=== PATIENT | female | born 1990 | race Hispanic/Latino ===

== ENCOUNTER → 2017-12-21 13:44 | Outpatient (CLI) | payer SELFPAY ==
--- NOTE | 2017-12-21 | DI.US.S_ITS ---
ULTRASOUND OF LEFT BREAST: 12/21/2017 CLINICAL: Palpable left breast lump and focal pain. IN UPPER OUTER QUADRANT, RESOLVED PER PATIENT. No prior exams were available for comparison. Color flow ultrasound of the left breast was performed on the areas of interest. Guerra scale images of the real-time examination were reviewed. IMPRESSION: NEGATIVE There is no sonographic evidence of malignancy. There is no sonographic abnormality seen in the left breast to correspond with the area of clinical concern in the upper outer quadrant, however, clinical followup is recommended. Of note, the patient states the prior palpable lump and area of pain have resolved. Return to annual mammogram screening schedule is recommended.(12/22/2018) This exam was interpreted at Station ID: [id number]. Electronically Signed By: Sera Curtis M.D. lk/:12/21/2017 16:21:15 letter sent: Clinical Evaluation Ultrasound BI-RADS: 1 Negative
== END ==
PROVIDERS: Family Provider Family Medicine; PCP Family Medicine; Visit Provider Nurse Practitioner Family
DX: N63.21 Unspecified lump in the left breast, upper outer quadrant (principal); N64.4 Mastodynia
CPT/HCPCS: 76642

== ENCOUNTER → 2018-04-26 09:22 | Outpatient (CLI) | payer OTHER, MEDICAID, SELFPAY ==
--- NOTE | 2018-04-26 | DI.US.S_ITS ---
PROCEDURE: US OB <= 14 WEEKS FETUS INDICATIONS: SIZE AND DATES OUTSIDE/PRIOR DATING DATA: Last menstrual period (LMP): 02/10/18. LMP-based estimated date of delivery (JUNI): 11/17/18. First dating scan (date and location): 04/26/18. Estimated date of delivery (JUNI) from first dating scan: . TECHNIQUE: Real-time scanning was performed of the fetus and maternal pelvic organs, with image documentation. COMPARISON: None. FINDINGS: Embryo: A single live intrauterine is seen. The measured heart rate is 106 beats per minute. The crown-rump length measures 0.3 cm, corresponding to an estimated gestational age of 6 weeks 0 days. It is too early for detailed anatomic assessment. By visual inspection, the amount of amniotic fluid is within normal limits. No significant findings of subchorionic/perigestational hemorrhage are seen. Measurement variability in dating: +/- 4 weeks by LMP, +/- 7 days by mean sac diameter (use before 6 weeks gestation if crown-rump length not able to be measured), +/- 5 days by crown-rump length (up to 8 weeks 6 days gestation), +/- 7 days by crown-rump length (up to 13 weeks 6 days gestation). Maternal organs: Ovaries are unremarkable. Limited images through the kidneys demonstrate no hydronephrosis. IMPRESSION: A single live intrauterine is seen. There is an approximately one month discrepancy between the estimated gestational age based upon these images and the estimated gestational age based upon the given date of the last menstrual period. Please correlate with precise clinical data. Dictated by: Natalio Amezcua M.D. on 04/26/2018 at 10:30 Approved by: Natalio Amezcua M.D. on 04/26/2018 at 10:33
== END ==
PROVIDERS: Family Provider Family Medicine; PCP Family Medicine; Visit Provider Family Medicine
DX: Z34.91 Encounter for supervision of normal pregnancy, unspecified, first trimester (principal); Z3A.01 Less than 8 weeks gestation of pregnancy
CPT/HCPCS: 76801; 76817

== ENCOUNTER → 2018-06-04 14:35 | Outpatient (REF) | payer OTHER, MEDICAID, SELFPAY ==
[2018-06-04 14:57] LABS: Influenza A and B by PCR Rapid Negative (Negative)
== END ==
LOC: LAB 14:35
PROVIDERS: Family Provider Family Medicine; PCP Family Medicine; Visit Provider Nurse Practitioner Family
DX: R05 Cough (principal); R52 Pain, unspecified
CPT/HCPCS: 87400

== ENCOUNTER → 2018-06-24 12:16 | Outpatient (CLI) | payer OTHER, MEDICAID, SELFPAY ==
--- NOTE | 2018-06-24 | DI.US.S_ITS ---
PROCEDURE: US PELVIC COMPLETE INDICATIONS: Pelvic pain, bleeding, uncertain IUD positioning, recent elective . TECHNIQUE: Real-time scanning was performed of the pelvic organs, with image documentation. Additional endovaginal scanning was necessary due to incomplete visualization of the adnexal and endometrial structures by transabdominal scanning. COMPARISON: [facility], US, PELVIC COMPLETE, 07/13/2017, 14:25. FINDINGS: Transabdominal scanning: Limited scanning through the kidneys shows no hydronephrosis. No pathologic free abdominal or pelvic fluid. Endovaginal scanning: Uterus: Uterus is normal in size at 4.0 x 5.3 x 8.6 cm, anteverted. The endometrium measures up to 23 mm mm in combined thickness and appears hypervascular with large vessels and indistinct margination of the endometrial borders with suspected clot and possible retained products of conception intermixed in the fundal portion of the endometrial canal. Active vaginal bleeding during the examination was present. A normally positioned IUD was not seen. A hyperechoic focus with shadowing was noted at the junction of the low uterine segment and upper cervical canal. Ovaries: Normal bilaterally, without evidence of adjacent free fluid or hemorrhagic fluid within the peritoneal space. IMPRESSION: Abnormal endometrial lining thickness in this patient who reportedly has undergone recent elective . A combination of endometrial hyperemia and enlarged blood vessels are present with intermixed clot and possible retained products of conception with the endometrial thickness up to 23 mm. Reportedly an IUD is in place but it is not positioned within the endometrial canal normally. Rather, there is an echogenic focus with shadowing at the junction of the low uterine segment and upper cervical canal. Ectopic IUD positioning appears present. Given the vaginal bleeding ongoing and abnormal appearance of the endometrial canal with suspected retained products of conception the ordering health care provider Dr. Schreiber was contacted to assess the patient and it is anticipated that the patient will be transferred to the emergency room for further evaluation and gynecological consultation. Dictated by: Sourav Marmolejo M.D. on 06/24/2018 at 13:51 Approved by: Sourav Marmolejo M.D. on 06/24/2018 at 13:56
== END ==
PROVIDERS: Family Provider Family Medicine; PCP Family Medicine; Visit Provider Family Medicine
DX: N93.9 Abnormal uterine and vaginal bleeding, unspecified (principal); R10.2 Pelvic and perineal pain; T83.32XA Displacement of intrauterine contraceptive device, initial encounter
CPT/HCPCS: 76856

== ENCOUNTER 2018-06-24 13:39 | Observation (INO) | payer OTHER, MEDICAID, SELFPAY ==
[2018-06-24] VITALS (14 sets, daily range): BP systolic 90–137; BP diastolic 60–85; PULSE 65–88; RESP 11–20; TEMP 36–36.7; O2SAT 97–100; BMI 23.6
--- NOTE | 2018-06-24 | PATH_ITS ---
[facility] Accession Number: [id number] . 01 Material submitted: . product of conception - POC . 02 Diagnosis: Products of Conception: Products of conception identified. MRV/06/27/2018 . 02 Electronically signed: . Carolina Trtoter MD, Pathologist NPI- [id number] . 01 Gross description: . Received in formalin, labeled with the patient's name and products of conception, is a suction bag containing multiple euceda-brown soft tissue fragments admixed with mucus measuring 2.1 x 2.0 x 0.6 cm in aggregate. No parts are identified. The specimen is entirely submitted in cassettes A1 and A2. (HOLLY:[id number]) /MRV . 02 Pathologist provided ICD-10: O02.1 . 02 CPT . 395089 Performed at: 01 [facility] [address] [id number] MD Josue Garcia MD Phone: [phone] Performed at: [address] [facility] [address] [place], [place] [id number] MD Zoila Giron MD Phone: [phone]
--- NOTE | 2018-06-24 13:54 | ED_ITS ---
HPI - General Adult General Chief complaint: Vaginal Bleeding Stated complaint: US. IUD issues/[facility] issues Time Seen by Provider: 06/24/18 13:40 Source: patient Mode of arrival: ambulatory Limitations: no limitations History of Present Illness HPI narrative: Patient is a not currently with the last 2 pr egnancies ending and elective . The last elective done in the middle of April of this year. She states that it was a medical . No instrumentation. States that [facility] States she had ultrasound done at that time. Does not know the results of that ultrasound. Had an IUD placed. She states that since the elective she has been bleeding every single day. She states that it varies from a very light bleeding to a heavy menstrual cycle. Even the very light bleeding does require her to wear a pad or a panty liner. She did pass out 1 time last week due to suspected blood loss. She was in [place] at the time. She did not receive any blood transfusions. When she returned home she had a follow-up visit this morning with her primary doctor who ordered a ultrasound. The preliminary report of the ultrasound showed an ectopic IUD placement and concerns for retained products of conception. She was sent to the emergency department. She states she was not bleeding very much this morning but it has increased to a light. currently. No abdominal pain. Related Data Home Medications Medication Instructions Recorded Confirmed ergocalciferol (vitamin D2) 50,000 unit PO QWEEK 06/24/18 06/24/18 [Vitamin D2] Allergies Allergy/AdvReac Type Severity Reaction Status Date / Time No Known Drug Allergies Allergy Unknown Unverified 06/27/17 12:35 Review of Systems Constitutional Denies fever(s) Cardiovascular Denies chest pain and Denies dyspnea Respiratory Denies dyspnea Gastrointestinal Gastrointestinal: Denies abdominal pain, Denies change in stool character, Denies diarrhea, Denies nausea and Denies vomiting Genitourinary Denies pelvic pain and Reports vaginal discharge Integumentary/Breasts Denies rash Hematologic/Lymphatic Denies easy bleeding and Denies easy bruising [facility] Medical History Healthy adult (Acute) Social History Smoking Status: Never smoker Social History Smoking Status: Never smoker Exam Initial Vital Signs Initial Vital Signs: Vital Signs Temperature 98.1 F 06/24/18 13:49 Pulse Rate 88 06/24/18 13:49 Respiratory Rate 20 06/24/18 13:49 Blood Pressure 137/75 06/24/18 13:49 Pulse Oximetry 100 06/24/18 13:49 Const General: cooperative, healthy appearing, comfortable, well developed, well groomed and No acute distress Orientation: alert, awake and oriented x3 HENMT Head: normal to inspection and normocephalic Resp Effort & Inspection: normal respiratory effort Auscultation: clear to auscultation bilaterally Cardio Rate: regular rate Rhythm: regular rhythm GI Inspection: non-distended Palpation: soft, No firm and No tender Skin Lesions: no lesions Rashes: no rashes Neuro General: alert and awake Cognition: normal cognition Speech: speech normal Extrem General: normal to inspection and capillary refill normal Psych Appearance: grossly normal and well kempt Course Orders Ordered: ED Orders 06/24/18 13:55 Basic Metabolic Panel Stat Complete Blood Count AUTO DIFF Stat Test Serum,Qual Stat Type and Screen Stat Sodium Chloride (Normal Saline 0.9%) 1,000 mls @ 125 mls/hr IV CONT MAYKEL Last Admin: 06/24/18 15:09 Dose: 125 mls/hr Discontinued Medications Famotidine (Pepcid) 20 mg in 50 mls @ 200 mls/hr IV NOW ONE Stop: 06/24/18 15:10 Last Admin: 06/24/18 15:11 Dose: 200 mls/hr Metoclopramide HCl (Reglan) 10 mg IV NOW ONE Stop: 06/24/18 14:57 Last Admin: 06/24/18 15:11 Dose: 10 mg Vital Signs - 8 hr 06/24/18 13:49 06/24/18 14:02 Temperature 98.1 F Pulse Rate 88 80 Respiratory Rate 20 Blood Pressure 137/75 Blood Pressure [Left Arm] 117/85 Pulse Oximetry 100 97 Medical Decision Making Lab Data Lab results reviewed: Yes I reviewed the patient's lab results. Result diagrams: 06/24/18 13:55 06/24/18 13:55 Lab Results 04/08/19 04/08/19 04/08/19 Range/Units 13:55 13:55 13:55 WBC 5.7 (4.5-11.0) X10^3/uL RBC 4.01 (4.0-5.2) X10^6/uL Hgb 12.0 (12.0-16.0) g/dL Hct 35.8 L (36-46) % MCV 89.4 (80-100) fL MCH 30.0 (26-34) PG MCHC 33.6 (30-36) % RDW 12.9 (11.6-14.8) % Plt Count 338 (150-400) X10^3/uL Neut % (Auto) 52.4 (50-75) % Lymph % (Auto) 38.4 (25-40) % [place] % (Auto) 6.6 (3-14) % Eos % (Auto) 2.0 (2-4) % Baso % (Auto) 0.6 (0-2) % Neut # (Auto) 3000 (8411-6069) /uL Lymph # (Auto) 2200 (8227-7277) /uL [place] # (Auto) 400 (0-900) /uL Eos # (Auto) 100 (0-450) /uL Baso # (Auto) 0 (0-100) /uL Sodium 139 (137-145) mmol/L Potassium 4.1 (3.4-5.1) mmol/L Chloride 102 (98-107) mmol/L Carbon Dioxide 25 (22-32) mmol/L BUN 13 (7-17) mg/dL Creatinine 0.50 L (0.52-1.04) mg/dL Estimated GFR > 60.0 (>60) mL/min BUN/Creatinine Ratio 26.0 H (6-22) Glucose 98 (70-100) mg/dL Calcium 9.0 (8.4-10.2) mg/dL Serum , Qual Negative (Negative) Imaging Data Ultrasound pelvis: Radiologist's impression: PROCEDURE: US PELVIC COMPLETE INDICATIONS: Pelvic pain, bleeding, uncertain IUD positioning, recent elective . TECHNIQUE: Real-time scanning was performed of the pelvic organs, with image documentation. Additional endovaginal scanning was necessary due to incomplete visualization of the adnexal and endometrial structures by transabdominal scanning. COMPARISON: [facility], US, PELVIC COMPLETE, 07/13/2017, 14:25. FINDINGS: Transabdominal scanning: Limited scanning through the kidneys shows no hydronephrosis. No pathologic free abdominal or pelvic fluid. Endovaginal scanning: Uterus: Uterus is normal in size at 4.0 x 5.3 x 8.6 cm, anteverted. The endom etrium measures up to 23 mm mm in combined thickness and appears hypervascular with large vessels and indistinct margination of the endometrial borders with suspected clot and possible retained products of conception intermixed in the fundal portion of the endometrial canal. Active vaginal bleeding during the examination was present. A normally positioned IUD was not seen. A hyperechoic focus with shadowing was noted at the junction of the low uterine segment and upper cervical canal. Ovaries: Normal bilaterally, without evidence of adjacent free fluid or hemorrhagic fluid within the peritoneal space. IMPRESSION: Abnormal endometrial lining thickness in this patient who reportedly has undergone recent elective . A combination of endometrial hyperemia and enlarged blood vessels are present with intermixed clot and possible retained products of conception with the endometrial thickness up to 23 mm. Reportedly an IUD is in place but it is not positioned within the endometrial canal normally. Rather, there is an echogenic focus with shadowing at the junction of the low uterine segment and upper cervical canal. Ectopic IUD positioning appears present. Given the vaginal bleeding ongoing and abnormal appearance of the endometrial canal with suspected retained products of conception the ordering health care provider Dr. Schreiber was contacted to assess the patient and it is anticipated that the patient will be transferred to the emergency room for further evaluation and gynecological consultation. Dictated by: Sourav Marmolejo M.D. on 06/24/2018 at 13:51 MDM Narrative Medical decision making narrative: Patient is nontoxic appearing. Her H&H is unremarkable. She is not . The ultrasound report placed in this note for reference. It was not ordered out of the emergency department. It does show what looks like retained products of conception and a displaced IUD. I discussed the case with Dr. Grace who will admit the patient to take the operating room for D and C. The patient's last meal was at 1100 hours this morning. Medications were given per manager spanish recommendation. Patient was informed of the findings and of the need for surgery. She expressed understanding and agreement with plan. Discharge Plan Departure Patient Disposition: Admitted As Inpatient Clinical Impression: Retained products of conception IUD migration Qualifiers: Encounter type: initial encounter Qualified Code(s): T83.89XA - Other specified complication of genitourinary prosthetic devices, implants and grafts, initial encounter Admit Date/Time: 06/24/18 14:59 Admit Provider: Viktoriya Grace
[2018-06-24 14:10] LABS: Add Manual Diff / Slide Review NO; Basophils Absolute Auto 0 /uL (0-100); Basophils Percent Auto 0.6 % (0-2); Eosinophils Absolute Auto 100 /uL (0-450); Hematocrit 35.8 % (36-46); Lymphocytes Absolute Auto 2200 /uL (1100-4500); Lymphocytes Percent Auto 38.4 % (25-40); Mean Corpuscular HGB Conc 33.6 % (30-36); Mean Corpuscular Volume 89.4 fL (80-100); Monocytes Absolute Auto 400 /uL (0-900); Monocytes Percent Auto 6.6 % (3-14); Neutrophils Absolute Auto 3000 /uL (1500-7000); Neutrophils Percent Auto 52.4 % (50-75); Platelet Count 338 X10^3/uL (150-400); Red Blood Cell Count 4.01 X10^6/uL (4.0-5.2); Red Cell Distribution Width 12.9 % (11.6-14.8); White Blood Cell Count 5.7 X10^3/uL (4.5-11.0)
--- NOTE | 2018-06-24 14:15 | PC.NURSE ---
Patient had a procedure for a medical in April 2018 and was continuously bleeding afterward. In April,patient had an US and had an IUD [facility] [place]. Since then has continued with bleeiding off and on heavy and spotting. While she wa sin [place] last week she bled very heavily for several days, a super tampon every hour. She also reports having a syncopal episode while the heavy bleeding was happening. Today bleeding is more spotting like at the beginning of a period. She saw Dr. Schreiber due to continued bleeding and had bloodwork and US done. Preliminary results of US showed migrated IUD with large amount of blood in uterus. Sent here.
[2018-06-24 14:25] LABS: Blood Urea Nitrogen 13 mg/dL (7-17); Carbon Dioxide 25 mmol/L (22-32); Chloride 102 mmol/L (98-107); Estimated Glomerular Filt Rate > 60.0 mL/min (>60); Glucose 98 mg/dL (70-100); HEMOLYSIS < 15 (0-50); Potassium 4.1 mmol/L (3.4-5.1); Sodium 139 mmol/L (137-145)
[2018-06-24 14:27] LABS: Pregnancy Test Serum,Qual Negative (Negative)
[2018-06-24] MEDS: SODIUM CHLORIDE 0.9% 1,000 ML 125 ML IV (15:09)
[2018-06-24] MEDS: FAMOTIDINE 20 MG/50 ML PIGGYBACK 200 MG IV (15:11)
[2018-06-24] MEDS: METOCLOPRAMIDE 10 MG/2 ML INJ IV (15:11)
[2018-06-24] MEDS: LACTATED RINGERS 1,000 ML 100 ML IV (15:53)
[2018-06-24] MEDS: LACTATED RINGERS 1,000 ML 42 ML IV (19:30)
--- NOTE | 2018-06-24 19:51 | PM.PREOP ---
Pre-operative Note Interval Note History & Physical reviewed/Exam performed by Physician: Yes Changes to H&P: No
--- NOTE | 2018-06-24 19:51 | PM.HP.1 ---
History of Present Illness Date Patient Seen: 06/24/18 Time Patient Seen: 17:30 Chief complaint: US. IUD issues/Nonprofit Director issues Narrative: Patient is a 28-year-old 4 para 2 who presented to the emergency department with brisk vaginal bleeding. She was sent from her primary care doctor's office 2 ultrasound due to the bleeding. The IUD was found to be in the lower uterine segment and there appeared to be retained products of conception and clot in the uterus. Patient underwent a medical termination in April of 2018. At the post procedure visit and ultrasound was performed but the patient does not know the results of that ultrasound. An IUD was placed at that visit. She has been bleeding ever since. Patient History Medical History Healthy adult (Acute) Social History household members: significant other and children Smoking Status: Never smoker Family & Social History Social History: household members significant other,children Prior Living Arrangements House Tobacco & Substance use: Smoking Status Never smoker Meds Home Medications Medication Instructions Recorded Confirmed Type ergocalciferol (vitamin D2) 50,000 unit PO QWEEK 06/24/18 06/24/18 History [Vitamin D2] Allergies Allergy/AdvReac Type Severity Reaction Status Date / Time No Known Drug Allergies Allergy Unknown Verified 06/24/18 19:22 Exam Vital Signs (past 8 hours): - 06/24/18 13:49 06/24/18 14:02 06/24/18 14:30 Temperature 98.1 F Pulse Rate 88 80 88 Respiratory Rate 20 16 Blood Pressure 137/75 Blood Pressure [Left Arm] 117/85 105/67 Pulse Oximetry 100 97 97 06/24/18 15:31 06/24/18 16:30 06/24/18 17:00 Temperature Pulse Rate 66 76 69 Respiratory Rate 16 16 16 Blood Pressure Blood Pressure [Left Arm] 90/60 107/76 99/61 Pulse Oximetry 99 100 100 06/24/18 18:00 06/24/18 18:57 06/24/18 19:07 Temperature 97.0 F L Pulse Rate 77 77 68 Respiratory Rate 15 16 15 Blood Pressure 100/67 110/71 Blood Pressure [Left Arm] 104/69 Pulse Oximetry 100 99 100 Oxygen Delivery Method Room Air Narrative Exam Narrative: HEENT: No thyromegaly, no anterior cervical or supraclavicular lymphadenopathy. Lungs:Clear to auscultation bilaterally, no wheezes. Cardiovascular: Regular rate and rhythm, no murmurs, rubs, or gallops. Abdomen: No scars. No hepatosplenomegaly. No masses palpable. External genitalia: Normal Vagina: Normal Cervix: Normal Bimanual exam: 8 Week size uterus. Mobile. Rectal: No masses. Objective Labs Result Diagrams: 06/24/18 13:55 06/24/18 13:55 Labs: Laboratory Results - last 24 hr 06/24/18 06/24/18 06/24/18 13:55 13:55 13:55 WBC 5.7 RBC 4.01 Hgb 12.0 Hct 35.8 L MCV 89.4 MCH 30.0 MCHC 33.6 RDW 12.9 Plt Count 338 Neut % (Auto) 52.4 Lymph % (Auto) 38.4 [place] % (Auto) 6.6 Eos % (Auto) 2.0 Baso % (Auto) 0.6 Neut # (Auto) 3000 Lymph # (Auto) 2200 [place] # (Auto) 400 Eos # (Auto) 100 Baso # (Auto) 0 Sodium 139 Potassium 4.1 Chloride 102 Carbon Dioxide 25 BUN 13 Creatinine 0.50 L Estimated GFR > 60.0 BUN/Creatinine Ratio 26.0 H Glucose 98 Calcium 9.0 Serum , Qual Negative Blood Type Antibody Screen 06/24/18 13:55 WBC RBC Hgb Hct MCV MCH MCHC RDW Plt Count Neut % (Auto) Lymph % (Auto) [place] % (Auto) Eos % (Auto) Baso % (Auto) Neut # (Auto) Lymph # (Auto) [place] # (Auto) Eos # (Auto) Baso # (Auto) Sodium Potassium Chloride Carbon Dioxide BUN Creatinine Estimated GFR BUN/Creatinine Ratio Glucose Calcium Serum , Qual Blood Type O Positive Antibody Screen Negative Assessment & Plan Assessment & Plan narrative: Assessment: 28-year-old 4 para 2 with retained products of conception and malposition IUD Plan: Removal of IUD and suction D&C The risks, benefits, and alternatives to the procedure were explained to the patient. The risks including bleeding, infection, and uterine perforation. She understands these risks and agrees to proceed. Time Spent With Patient Time with patient: 15-24 minutes
--- NOTE | 2018-06-24 23:42 | SUR.OPER ---
Lithotomy on padded OR bed, head on pillow, arms secured on padded arm boards at <90 degrees abduction. Legs secured in padded yellow fins stirrups.
[2018-06-25] MEDS: OXYCODONE/ACETAMINOPHEN 5/325 TABLET 1 TAB PO
[2018-06-25 00:01] VITALS: BP 107/74; PULSE 83; RESP 13; TEMP 37; O2SAT 100
[2018-06-25 00:25] VITALS: BP 100/64; PULSE 76; RESP 16; TEMP 37.2; O2SAT 100
--- NOTE | 2018-07-03 06:44 | PM.GYNOP.1 ---
Operative Date/Time/Diagnoses Date of procedure: 06/24/18 Time of procedure: 23:30 Pre-op diagnosis: Retained products of conception Malpositioned IUD Post-op diagnosis: same Procedure: Procedures Operation Date: 06/24/18 19:00 Actual Procedures Side Surgeon p Dilation and Curettage-Suction Viktoriya Grace MD Indications: Retained products of conception Malpositioned IUD Surgeon: Viktoriya Grace Anesthesia Type: General (LMA) Operative Notes Findings: 8 week size anteverted uterus Large amount of products of conception Mirena IUD sitting in the lower uterine segment Closure Type: not applicable Specimen(s): other (Products of conception to pathology, IUD) Estimated blood loss (mL): 100 Blood products transfused: none Procedure in detail: After informed consent was obtained, the patient was taken to the operating room where she was placed in the dorsal supine position. After adequate LMA general anesthesia was achieved, she was placed in the dorsal lithotomy position, and prepped and draped in the usual sterile fashion. a time-out was performed. A bivalve speculum was placed into the vagina and the anterior lip of the cervix grasped with a single-tooth tenaculum. The Mirena IUD strings were grasped and the IUD was removed without difficulty. The cervical os was sequentially dilated until the # 8 curved plastic curette could pass easily into the endometrial cavity. Several passes with suction revealed a large amount of tissue. The polyp forceps were used to remove clot and tissue. Several passes with gentle sharp curettage revealed some tissue. Several more passes with suction revealed blood only. The instruments were removed from the uterus. The single-tooth tenaculum was removed from the anterior lip of the cervix. The bivalve speculum was removed from the vagina. Sponge, lap, and instrument counts were correct x2. The patient tolerated the procedure well, and was taken to PACU in stable condition. Complications: none Post-operative Condition: stable Disposition: PACU Plan for aftercare: Home after recovery
== END 2018-06-25 00:30 | disposition home or self-care (01) ==
LOC: ED 14:56 → AC 15:00
PROVIDERS: Admitting Provider Obstetrics & Gynecology; Emergency Provider Emergency Medicine; Family Provider Family Medicine; PCP Family Medicine; Visit Provider Obstetrics & Gynecology
PROC: (CPT 58120; principal; 2018-06-24 19:00)
DX: O03.4 Incomplete spontaneous abortion without complication (principal); T85.628A Displacement of other specified internal prosthetic devices, implants and grafts, initial encounter
CPT/HCPCS: 59812; 36591; 76856; 80048; 82962; 84703; 85025; 86850; 86900; 86901; 96361; 96365; 96375; 99283; 99284; G0378; J1885; J2250; J2704; J2765; J3010

== ENCOUNTER → 2022-12-01 15:22 | Outpatient (CLI) | payer OTHER, MEDICAID, SELFPAY ==
--- NOTE | 2022-12-01 | DI.US.S_ITS ---
PROCEDURE: US OB <= 14 WEEKS FETUS INDICATIONS: DATING OUTSIDE/PRIOR DATING DATA: Last menstrual period (LMP): 08/30/22. LMP-based estimated date of delivery (JUNI): 06/06/23 First dating scan (date and location): 12/01/22 study. Estimated date of delivery (JUNI) from first dating scan: 07/02/23. TECHNIQUE: Real-time scanning was performed of the fetus and maternal pelvic organs, with image documentation. Endovaginal scanning was also performed to better visualize the fetus and maternal ovaries. COMPARISON: None. FINDINGS: Anteverted maternal uterus contains a fundal gestational sac with products of conception. There are few small irregular avascular areas of hypoechogenicity adjacent to the gestational sac encompassing less than 10% sac circumference. The cervix is closed. There is a live intrauterine gestation with an average crown-rump length of 2.79 cm corresponding to a 9 week 4 day +/-6 days gestation. There is detectable cardiac activity at a rate of 175 beats per minute. An unfused amnion is present. There is a normal yolk sac. There are no suspicious adnexal masses. There is a thick-walled peripherally vascular corpus luteum in the left ovary. The right ovary was not well seen. No free pelvic fluid. IMPRESSION: 1. Single living intrauterine with a gestational age by crown-rump length of 9 weeks 4 days, inconsistent with clinical dates. 2. Very small a vascular and irregular perigestational hemorrhage. This is probably an implantation bleed. The cervix is closed. We strive to produce accurate, complete, and clear reports of imaging services. To assist us in improving patient care, this report was composed using standard report templates and voice recognition software. Therefore, it may contain abnormal punctuation, insertions and/or omissions. Occasional wrong-word or sound-alike substitutions may occur. Though we review the report and make efforts to correct it, we do recommend that the report be read carefully in proper context to recognize any text inaccuracies. Dictated by: Marleny France M.D. on 12/01/2022 at 23:00 Approved by: Marleny France M.D. on 12/01/2022 at 23:05
== END ==
PROVIDERS: Family Provider Family Medicine; PCP Family Medicine; Referring Provider Family Medicine; Visit Provider Family Medicine
DX: Z36.87 Encounter for antenatal screening for uncertain dates (principal); Z3A.09 9 weeks gestation of pregnancy
CPT/HCPCS: 76801; 76817

== ENCOUNTER → 2022-12-18 12:46 | Outpatient (CLI) | payer OTHER, MEDICAID, SELFPAY ==
[2022-12-18 13:11] LABS: Add Manual Diff / Slide Review NO; Basophils Absolute Auto 0 /uL (0-100); Basophils Percent Auto 0.5 % (0-2); Eosinophils Absolute Auto 100 /uL (0-450); Eosinophils Percent Auto 0.7 % (2-4); Hematocrit 34.8 % (36-46); Hemoglobin 12.1 g/dL (12.0-16.0); Lymphocytes Absolute Auto 1800 /uL (1100-4500); Lymphocytes Percent Auto 21.6 % (25-40); Mean Corpuscular HGB Conc 34.7 % (30-36); Mean Corpuscular Volume 89.3 fL (80-100); Monocytes Absolute Auto 500 /uL (0-900); Monocytes Percent Auto 6.2 % (3-14); Neutrophils Absolute Auto 6000 /uL (1500-7000); Platelet Count 268 X10^3/uL (150-400); Red Cell Distribution Width 13.2 % (11.6-14.8); White Blood Cell Count 8.4 X10^3/uL (4.5-11.0)
[2022-12-18 13:16] LABS: Appearance Urine UA CLEAR; Bilirubin Urine UA NEGATIVE (NEGATIVE); Color Urine UA YELLOW; Glucose Urine UA NEGATIVE (Negative); Ketones Urine UA NEGATIVE (NEGATIVE); Leukocyte Esterase Urine UA TRACE (NEGATIVE); Nitrite Urine UA NEGATIVE (Negative); Occult Blood Urine UA NEGATIVE (Negative); Protein Urine UA NEGATIVE (Negative); Specific Gravity Urine UA 1.015 (1.000-1.035); Urobilinogen Urine UA 0.2 E.U./dL (0.2); pH Urine UA 6.5 (4.5-8.0)
[2022-12-18 13:23] LABS: Bacteria Urine None Seen; Culture Indicated Urine Cult Not Indicated; RBC Urine None Seen (0-5/HPF); Squamous Epithelial Cell Urine None Seen (0-5/HPF); Urine Comments N; WBC Urine None Seen (0-5/HPF)
[2022-12-18 15:58] LABS: Hepatitis B Surface Antigen NEGATIVE s/c (NEGATIVE); Rubella Antibody IgG 11.9 IU/mL (>15)
[2022-12-18 16:11] LABS: HIV 1 & 2 Ab/Ag 4th Gen Combo NEGATIVE (NEGATIVE); Hep C Virus Ab w/Reflex Quant NEGATIVE s/c (NEGATIVE)
[2022-12-19 06:44] LABS: RPR Screen Non Reactive (Non Reactive)
[2022-12-19 10:04] LABS: Varicella IgG Antibody 325 index (Immune >165)
== END ==
PROVIDERS: Family Provider Family Medicine; PCP Family Medicine; Referring Provider Family Medicine; Visit Provider Family Medicine
DX: Z34.80 Encounter for supervision of other normal pregnancy, unspecified trimester (principal)
CPT/HCPCS: 36415; 80055; 81003; 81015; 86787; 86803; 86850; 86900; 86901; 87086; 87389

== ENCOUNTER → 2023-02-12 12:27 | Outpatient (CLI) | payer OTHER, MEDICAID, SELFPAY ==
--- NOTE | 2023-02-12 12:28 | DI.US.S_ITS ---
PROCEDURE: US OB <= 14 WEEKS FETUS INDICATIONS: anatomy scan OUTSIDE/PRIOR DATING DATA: Last menstrual period (LMP): 08/30/2022. LMP-based estimated date of delivery (JUNI): 06/06/2023 First dating scan (date and location): 12/01/2022. Estimated date of delivery (JUNI) from first dating scan: 07/02/2023. The calculations are made using the working JUNI of 07/02/2023. TECHNIQUE: Real-time scanning was performed of the fetus, with image documentation and biometric measurements. Endovaginal scanning: Not dictated COMPARISON: [facility], OB <= 14 WEEKS FETUS, 12/01/2022, 15:38. FINDINGS: General: A single living intrauterine gestation is present. Presentation: Vertex Placenta: Placental position is posterior, without previa. Inferior placenta edge is seen 1.8 cm from internal os. Amniotic fluid index: 13.8 cm, normal range is 5-24 cm. Single deepest vertical pocket is 3.9 cm. heart rate: 150 beats per minute. Maternal cervical canal: 4.7 cm long. Normal lower limit is 2.5 cm. biometrics: Biparietal diameter: 4.4 cm, 19 weeks, 3 days Head circumference: 17 cm, 19 weeks, 4 days. Abdominal circumference: 15.2 cm, 20 weeks, 3 days. Femur length: 3.3 cm, 20 weeks, 3 days Clinically estimated gestational age: 20 weeks, 0 day Composite gestational age from present scan: 20 weeks, 0 day Estimated weight and percentile: 345 g, 63% Anatomic survey: Neuro: Ventricles are non-dilated at less than 10 mm. Cisterna magna is normal at 3-11 mm. Cerebellum is normal in size and morphology. Nuchal skin fold: Normal at less than 6 mm between 14-21 weeks gestational age. Face: Nose and lips, facial profile are normal. Spine: Not well seen due to position.. Heart: 4-chambered heart is present, with normal ventricular outflow tracts. Diaphragm: Diaphragm is intact. Stomach: Left-sided stomach is present. Kidneys: No hydronephrosis. Normal is less than 5 mm in 2nd trimester, less than 7 mm in 3rd trimester. Cord: 3-vessel cord has orthotopic insertion. Bladder: Normal in size. Extremities: All 4 extremities identified. IMPRESSION: 1. Single live intrauterine gestation with fetus in vertex presentation. heart rate is 150 beats per minute. Normal amount of amniotic fluid with SHAKEEL equals 13.8 cm. Normal growth. Estimated weight is at 63%. 2. Low-lying placenta as above. Sonographic follow-up is recommended. 3. spine is not well seen on the current study due to position. Rest of the anatomic survey is normal. We strive to produce accurate, complete, and clear reports of imaging services. To assist us in improving patient care, this report was composed using standard report templates and voice recognition software. Therefore, it may contain abnormal punctuation, insertions and/or omissions. Occasional wrong-word or sound-alike substitutions may occur. Though we review the report and make efforts to correct it, we do recommend that the report be read carefully in proper context to recognize any text inaccuracies. Dictated by: Bennett Ma M.D. on 02/12/2023 at 16:07 Approved by: Bennett Ma M.D. on 02/12/2023 at 16:10
== END ==
LOC: US 12:27
PROVIDERS: Family Provider Family Medicine; PCP Family Medicine; Referring Provider Family Medicine; Visit Provider Family Medicine
DX: Z34.80 Encounter for supervision of other normal pregnancy, unspecified trimester (principal); Z3A.20 20 weeks gestation of pregnancy
CPT/HCPCS: 76801; 76811

== ENCOUNTER → 2023-03-13 12:30 | Outpatient (CLI) | payer OTHER, MEDICAID, SELFPAY ==
--- NOTE | 2023-03-13 12:32 | DI.US.S_ITS ---
PROCEDURE: US OB FOLLOW UP INDICATIONS: FOLLOW UP PLACENTA OUTSIDE/PRIOR DATING DATA: Last menstrual period (LMP): 08/30/2022. LMP-based estimated date of delivery (JUNI): 06/06/2023. First dating scan (date and location): 12/01/2022. Estimated date of delivery (JUNI) from first dating scan: 07/02/2023. The calculations are made using the ultrasound JUNI of 07/02/2023. TECHNIQUE: Real-time scanning was performed of the fetus, with image documentation. Endovaginal scanning: Not performed COMPARISON: None. FINDINGS: A single living intrauterine gestation is present. Presentation: Vertex. Placenta: Placental position is posterior, without previa. Amniotic fluid index: 12.8 cm, normal range is 5-24 cm. Single deepest vertical pocket is 3.5 cm. heart rate: 155 beats per minute. Maternal cervical canal: 4.7 cm long. Normal lower limit is 2.5 cm. IMPRESSION: Single live intrauterine . Lower margin of the placenta now measures 2.6 centimeters from the internal cervical os. Dictated by: Barak Brooks M.D. on 03/14/2023 at 16:44 Approved by: Barak Brooks M.D. on 03/14/2023 at 16:49
== END ==
PROVIDERS: Family Provider Family Medicine; PCP Family Medicine; Referring Provider Family Medicine; Visit Provider Family Medicine
DX: O44.00 Complete placenta previa NOS or without hemorrhage, unspecified trimester (principal)
CPT/HCPCS: 76816

== ENCOUNTER → 2023-06-04 11:27 | Outpatient (CLI) | payer OTHER, MEDICAID, SELFPAY ==
[2023-06-06 09:57] LABS: Strep Grp B PCR NEG for Grp B Strep
== END ==
PROVIDERS: Family Provider Family Medicine; PCP Family Medicine; Visit Provider Family Medicine
DX: Z34.80 Encounter for supervision of other normal pregnancy, unspecified trimester (principal)
CPT/HCPCS: 87653

== ENCOUNTER 2023-06-27 07:36 | Inpatient (IN) | payer OTHER, MEDICAID, SELFPAY ==
[2023-06-27] MEDS: LACTATED RINGERS 1,000 ML 100 ML IV (09:00)
--- NOTE | 2023-06-27 11:44 | PM.OBHP.IH.1 ---
OB HPI Date/Time Date of admission: 06/27/23 Date Patient Seen: 06/27/23 History of Present Condition Chief complaint: contractions JUNI Calculator Estimated Delivery Date Method Current WG Current Estimate 07/02/23 Manual 39w 2d Final JUNI - LINSEY Other Estimates 06/06/23 LMP (Uncertain) 43w 0d 07/02/23 Ultrasound #1 39w 2d Estimated Gestational Age (weeks): 39w2d Narrative: 33yo at 39w2d here with SROM at home, regular contractions. Pt reports feeling a gush of fluid around 5am. She immediately started gurinder afterwards. They have been increasing in intensity and frequency since then. No vaginal bleeding. She is feeling her baby move regularly. The pts has been uncomplicated. care: good care, initiated at week # (12) and pounds weight gain (45) Dating criteria OB: based on 1st trimester US only Ultrasounds: normal 1st trimester US, normal mid trimester US and abnormal US findings (marginal previa resolved on repeat u/s) Obstetrical complications: none Medical complications OB: none Preadmission Labs Last OB Lab Results: Blood Type O Positive 06/27/23 10:29 Antibody Screen Negative 06/27/23 10:29 Hematocrit 34.4 % (36-46) L 06/27/23 10:29 Hemoglobin 11.2 g/dL (12.0-16.0) L 06/27/23 10:29 Hepatitis B Surface Antigen Negative s/c (NEGATIVE) 12/18/22 12:50 Hepatitis C Antibody Negative s/c (NEGATIVE) 12/18/22 12:50 Rubella Antibody 11.9 IU/mL (>15) L 12/18/22 12:50 Varicella-Zoster IgG Antibody 325 index (Immune >165) 12/18/22 12:50 Group B Streptococcus (PCR) Neg for grp b strep 06/04/23 11:27 Glucose Tolerance Testin hr (100) -: Urine: negative Genetic Screens: Quad screen: Normal External Labs -: Urine: negative Prior (ies) Past Pregnancies Del. Date GA/Weeks Labor Lgth Wt Sex Route Outcome Anesthesia Place Delv Breastfeed Preg Comp Name 08/24/12 40 21 8 lb 3 oz Male vaginal live - full term [facility] attempted none Antonio 09/10/15 40 7 lb 9 oz Female vaginal live - full term [facility] attempted none Sharon 03/19/17 6 elective 04/19/18 6 elective hemorrhage Delivery Date: 04/19/18 Last Updated by: Sarah Davidson RN Required D&C for retained products and hemorrhage Evaluation Evaluation Baseline heart rate: 150 Variability: Moderate (11-25) monitor accelerations: Present Monitor Decelerations: Absent Contraction Frequency (minutes): 4 Status: Category l Dilation (cm): 1.5 Effacement (%): 50 station: -2 [facility] Medical History (Updated 12/11/22 @ 10:38 by Sarah Davidson RN) ADHD Anxiety Depression IUD migration Retained products of conception Healthy adult Surgical History (Updated 12/11/22 @ 09:41 by Sarah Davidson RN) History of removal of skin mole [place] teeth extracted Family History (Updated 12/11/22 @ 09:44 by Sarah Davidson RN) Mother Stroke Diabetes mellitus Hypertension A-fib Depression Father Depression Grandfather Dementia Social History marital status: unmarried,living together number of children: 2 household members: significant other and children lives independently: Yes caregiver/support person: Yes housing: [facility] pets and animals: Yes education level: college (bachelor's degree) 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) special yesenia needs: No travel history: over 6 months ago seatbelt use: always helmet use: Yes water heater temp set < 120 deg: Yes working smoke detector in home: Yes fire extinguisher in home: Yes carbon monox detector in home: Yes firearms in home: No do you feel safe at home: Yes Smoking Status: Never smoker second hand exposure: No (rarely when not ) alcohol intake: former (rarely when not ) substance use type: does not use during the past year weight has: remained stable well-balanced diet: rarely or never daily servings fruits/ve-1 (1-2) caffeine: Yes (occasional americano) Type(s) of exercise: walking Meds Home Medications and Allergies Home Medications Medication Instructions Recorded Confirmed Type vit no.95-ferrous 1 tab PO DAILY 12/11/22 06/25/23 History fumarate 28 mg-folic acid 800 mcg tablet ( Multivitamins) famotidine 20 mg tablet 20 mg PO BID #60 tabs 05/07/23 06/25/23 Rx Allergies Allergy/AdvReac Type Severity Reaction Status Date / Time No Known Drug Allergies Allergy Unknown Verified 06/25/23 11:22 OB Exam Resp Effort & Inspection: normal respiratory effort Auscultation: clear to auscultation bilaterally Cardio Rate: regular rate Rhythm: regular rhythm Heart Sounds: S1 normal, S2 normal and no murmurs GI Inspection: non-distended Palpation: Yes soft and No tender Presentation: vertex Objective Labs 06/27/23 10:29 Assessment and Plan Assessment and Plan Assessment and Plan narrative: 33yo at 39w2d here with SROM at home, regular contractions. GBS negative, Rh positive. No complications with . - Expectant management, anticipate - Will monitor for cervical change with consistent contractions already, if none initiate pitocin - FHT reassuring - GBS negative, no prophylaxis indicated - Epidural for pain control when desired. Okay for nitrous/fentanyl in the interim
[2023-06-27 12:16] LABS: Add Manual Diff / Slide Review NO; Basophils Absolute Auto 0 /uL (0-100); Basophils Percent Auto 0.2 % (0-2); Eosinophils Absolute Auto 100 /uL (0-450); Eosinophils Percent Auto 0.5 % (2-4); Hematocrit 34.4 % (36-46); Hemoglobin 11.2 g/dL (12.0-16.0); Lymphocytes Absolute Auto 1300 /uL (1100-4500); Lymphocytes Percent Auto 13.4 % (25-40); Mean Corpuscular HGB Conc 32.6 % (30-36); Mean Corpuscular Volume 82.7 fL (80-100); Monocytes Absolute Auto 500 /uL (0-900); Monocytes Percent Auto 5.4 % (3-14); Neutrophils Absolute Auto 8100 /uL (1500-7000); Neutrophils Percent Auto 80.5 % (50-75); Platelet Count 222 X10^3/uL (150-400); Red Blood Cell Count 4.15 X10^6/uL (4.0-5.2); Red Cell Distribution Width 15.8 % (11.6-14.8)
[2023-06-27] MEDS: CALCIUM CARBONATE 500 MG TAB 1000 MG PO ×2 (12:43→18:49)
[2023-06-27 13:01] VITALS: BP 124/78
[2023-06-27] MEDS: OXYTOCIN PREMIX 30 UNIT/500 ML PLAST..BAG IV (16:43)
--- NOTE | 2023-06-27 23:08 | P.PNOB_ITS ---
Date/Time Date Patient Seen: 06/27/23 Time Patient Seen: 23:08 Pelvic Exam Dilation (cm): 2 Effacement (%): 75 station: -2 Contractions Pitocin rate (mU/min): 20 Contraction frequency (min): 3 Contraction intensity: Strong/Firm Intrauterine tone measurement: 140 Status status: Category l Heart Rate Baseline: 150 Monitor Accelerations: Present Monitor Decelerations: Absent Monitor Variability: Moderate Assessment and Plan Comments: 33yo at 39w2d here with SROM at home, regular contractions. GBS negative, Rh positive. No complications with . Pt without any cervical change now despite 20mU pitocin. IUPC placed to allow for better titr ation. Pt not yet in active labor. Will also receive epidural to hopefully help with relaxation to allow for dilation. - Continue pitocin, titrate to adequate MVUs - FHT reassuring - Epidural for pain control now
--- NOTE | 2023-06-28 00:38 | PM.AN.REGBLK ---
Regional Block Pre-procedure Procedure: Continuous Lumbar Epidural for L&D Attending OB provider: Lesa Levy PMH/ROS narrative: 33yo healthy female Hx: No personal or family history of anesthesia problems. PSH/Anesthesia history narrative: Labor epidural ASA Class: II Labs: Hct 34.4 % (36-46) L 06/27/23 10:29 Plt Count 222 X10^3/uL (150-400) 06/27/23 10:29 Medications: Current Medications Generic Name Dose Route Start Last Admin Trade Name Freq PRN Reason Stop Dose Admin Acetaminophen 650 mg 06/28/23 00:34 Acetaminophen 325 Mg Tablet PO 06/28/23 00:35 NOW ONE Calcium Carbonate 1,000 mg 06/27/23 10:29 06/27/23 18:49 Calcium Carbonate 500 Mg Tab PO 1,000 mg Q4HR PRN Administration Dyspepsia Carboprost Tromethamine 250 mcg 06/27/23 10:29 Carboprost 250 Mcg/Ml Ampul IM Q90M PRN Bleeding Diphenhydramine HCl 25 mg 06/28/23 00:35 Diphenhydramine 50 Mg/Ml Vial IV Q10M PRN Pruritis Ephedrine Sulfate 5 mg 06/28/23 00:35 Ephedrine 50 Mg/Ml Vial IV Q5M PRN Blood pressure decrease more than 20% of baseline. Fentanyl 50 mcg 06/27/23 10:29 Fentanyl 100 Mcg/2 Ml Inj IV Q1H PRN Pain, Moderate (4-6) Lactated Ringer's 1,000 mls @ 100 mls/hr 06/27/23 10:30 06/27/23 09:00 Lactated Ringers IV 100 mls/hr CONT MAYKEL Administration Oxytocin/Lactated Ringer's 30 unit in 500 mls @ 200 mls/hr 06/27/23 10:29 Oxytocin Premix IV CONT PRN Bleeding Protocol Tranexamic Acid 1,000 mg/ 100 mls @ 200 mls/hr 06/27/23 10:29 Sodium Chloride IV NOW PRN Bleeding Oxytocin/Lactated Ringer's 30 unit in 500 mls @ 2 mls/hr 06/27/23 14:54 06/27/23 16:43 Oxytocin Premix IV 2 milliunit/min TITRATE MAYKEL 2 mls/hr Administration Protocol 2 MILLIUNIT/MIN FENT 2MCG/ML BUPIV 0.125% EPI 200 mcg in 100 mls @ 6 mls/hr 06/28/23 00:45 Fentanyl/Bupiv/Ns 2mcg/Ml - 0.125% EPIDURAL CONT MAYKEL Lidocaine HCl 20 ml 06/27/23 10:29 Lidocaine 1% 20 Ml INJ INTRA-OP PRN Post Delivery Methylergonovine Maleate 0.2 mg 06/27/23 10:29 Methylergonovine 0.2 Mg Tablet PO Q6HR PRN Heavy Bleeding Methylergonovine Maleate 0.2 mg 06/27/23 10:29 Methylergonovine 0.2 Mg/Ml Vial IM NOW PRN Bleeding Misoprostol 800 mcg 06/27/23 10:29 Misoprostol 200 Mcg Tablet MN NOW PRN Bleeding Misoprostol 400 mcg 06/27/23 10:29 Misoprostol 200 Mcg Tablet SL NOW PRN Bleeding Nalbuphine HCl 2.5 mg 06/28/23 00:35 Nalbuphine 20 Mg/Ml Ampul IV Q10M PRN Pruritis Naloxone HCl 0.2 mg 06/27/23 10:29 Naloxone 0.4 Mg/Ml Vial IV Q2MIN PRN Opiate Reversal Naloxone HCl 0.4 mg 06/28/23 00:37 Naloxone 0.4 Mg/Ml Vial IV Q2MIN PRN Opiate Reversal Ondansetron HCl 4 mg 06/27/23 10:29 Ondansetron 4 Mg/2 Ml Inj IV Q4HR PRN Nausea And Vomiting Oxytocin 10 unit 06/27/23 10:29 Oxytocin 10 Unit/Ml Vial IM NOW PRN Bleeding Allergies: Allergies Allergy/AdvReac Type Severity Reaction Status Date / Time No Known Drug Allergies Allergy Unknown Verified 06/25/23 11:22 Procedure Insertion date: 06/27/23 Insertion time: 23:42 Prep/Local: betadine x3 and 1% lidocaine Interspace: L3-L4 Patient position: sitting Needle: 18 gauge Sheela Loss of resistance with: saline CRISTOFER at (cm): 7 Catheter placed at SKIN (cm): 14 Catheter in SPACE (cm): 7 Insertion: No CSF, No Blood, No Paresthesia with insertion, No Paresthesia with injection and No Test dose reaction Initial Medications TEST DOSE time: 23:43 BOLUS DOSE time: 23:46 BOLUS DOSE (mL): 5 BOLUS DOSE med: other (2% Lidocaine) Infusion INFUSION: 0.125% bupivacaine and with fentanyl 2 mcg/mL Initial rate (mL/hr): 0 Subsequent interventions: See anesthesia progress note. Post-procedure Anesthesia date START: 06/27/23 Anesthesia time START: 23:10 Anesthesia date END: 06/28/23 Anesthesia time END: 01:30 Post-procedure Anesthesia Assessment: Yes CV function: HR/BP stable, Yes Resp function: RR/sat/airway adequate, Yes Post-op hydration adequate, Yes Pain control adequate, Yes Nausea & vomiting absent, Yes Temperature > 36 C, Yes Mental status appropriate and Yes Anesthesia complications (See anesthesia progress note. )
[2023-06-28] MEDS: CALCIUM CARBONATE 500 MG TAB 1000 MG PO (01:15)
[2023-06-28] MEDS: ACETAMINOPHEN 325 MG TABLET 650 MG PO ×3 (01:15→22:16)
--- NOTE | 2023-06-28 01:21 | PM.PN.1 ---
Subjective Subjective Date Patient Seen: 06/27/23 Time Patient Seen: 23:10 Interval history: Labor epidural: Negative test dose, loading dose 3min after test dose, tachycardia post loading dose, no immediate change in BP, c/o headache, hypotension after switching from sitting to supine position, c/o numbness to tip of tongue after a significant amount of time from loading dose. Patient given time for improvement, no significant improvement noted, decision to pull catheter. Catheter tip intact. Multiple boluses of phenylephrine administered IV. HR in the 110s and BP 130s/90s before and after test dose. HR in 140s-160s after loading dose. Tylenol PO ordered for headache. 12 lead EKG sinus tachycardia. 0120: HR and BP near baseline. Will continue to monitor. Objective Labs 06/27/23 10:29 Labs: Laboratory Results - last 24 hr 06/27/23 10:29 WBC 10.0 RBC 4.15 Hgb 11.2 L Hct 34.4 L MCV 82.7 MCH 27.0 MCHC 32.6 RDW 15.8 H Plt Count 222 Neut % (Auto) 80.5 H Lymph % (Auto) 13.4 L [place] % (Auto) 5.4 Eos % (Auto) 0.5 L Baso % (Auto) 0.2 Neut # (Auto) 8100 H Lymph # (Auto) 1300 [place] # (Auto) 500 Eos # (Auto) 100 Baso # (Auto) 0 Blood Type O Positive Antibody Screen Negative [facility] Medical History (Updated 12/11/22 @ 10:38 by Sarah Davidson RN) ADHD Anxiety Depression IUD migration Retained products of conception Healthy adult Surgical History (Updated 12/11/22 @ 09:41 by Sarah Davidson RN) History of removal of skin mole [place] teeth extracted Family History (Updated 12/11/22 @ 09:44 by Sarah Davidson RN) Mother Stroke Diabetes mellitus Hypertension A-fib Depression Father Depression Grandfather Dementia Social History marital status: unmarried,living together number of children: 2 household members: significant other and children lives independently: Yes caregiver/support person: Yes housing: [facility] ([facility] pets and animals: Yes education level: college (bachelor's degree) 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) special yesenia needs: No travel history: over 6 months ago seatbelt use: always helmet use: Yes water heater temp set < 120 deg: Yes working smoke detector in home: Yes fire extinguisher in home: Yes carbon monox detector in home: Yes firearms in home: No do you feel safe at home: Yes Smoking Status: Never smoker second hand exposure: No (rarely when not ) alcohol intake: former (rarely when not ) substance use type: does not use during the past year weight has: remained stable well-balanced diet: rarely or never daily servings fruits/ve-1 (1-2) caffeine: Yes (occasional americano) Type(s) of exercise: walking
[2023-06-28] MEDS: FAMOTIDINE 20 MG TABLET PO (01:48)
--- NOTE | 2023-06-28 03:08 | PM.AN.REGBLK ---
Regional Block Pre-procedure Procedure: Continuous Lumbar Epidural for L&D Attending OB provider: Lesa Levy PMH/ROS narrative: 33yo female in labor requesting epidural. Prior epidural was placed about 23:[address] De La Cruz, complicated by tachycardia, hypotension, and tongue N/T, and that epidural catheter was removed. Pt declined to have Dr. De La Cruz place another epidural, and Dr. Levy called me to request a new epidural as pt is nearly 24 hours after ROM and in significant pain from contractions with pitocin on. On my arrival, pitocin had been turned off. Contractions about q.15 min. Pt reported pain 6/10 without pit running, 8/10 with. Pt's tachycardia had gotten into 160-170s earlier, now between 110-130s, which RN reports has been normal for pt during labor. Discussed new epidural placement with pt, including that I could not guarantee a better outcome than last time, and she wishes to proceed. See Dr. De La Cruz's pre-anesthesia assessment for further details. ASA Class: II Labs: Hct 34.4 % (36-46) L 06/27/23 10:29 Plt Count 222 X10^3/uL (150-400) 06/27/23 10:29 Medications: Current Medications Generic Name Dose Route Start Last Admin Trade Name Freq PRN Reason Stop Dose Admin Calcium Carbonate 1,000 mg 06/27/23 10:29 06/28/23 01:15 Calcium Carbonate 500 Mg Tab PO 1,000 mg Q4HR PRN Administration Dyspepsia Carboprost Tromethamine 250 mcg 06/27/23 10:29 Carboprost 250 Mcg/Ml Ampul IM Q90M PRN Bleeding Diphenhydramine HCl 25 mg 06/28/23 00:35 Diphenhydramine 50 Mg/Ml Vial IV Q10M PRN Pruritis Ephedrine Sulfate 5 mg 06/28/23 00:35 Ephedrine 50 Mg/Ml Vial IV Q5M PRN Blood pressure decrease more than 20% of baseline. Famotidine 20 mg 06/28/23 01:30 06/28/23 01:48 Famotidine 20 Mg Tablet PO 20 mg BID MAYKEL Administration Fentanyl 50 mcg 06/27/23 10:29 Fentanyl 100 Mcg/2 Ml Inj IV Q1H PRN Pain, Moderate (4-6) Lactated Ringer's 1,000 mls @ 100 mls/hr 06/27/23 10:30 06/27/23 09:00 Lactated Ringers IV 100 mls/hr CONT MAYKEL Administration Oxytocin/Lactated Ringer's 30 unit in 500 mls @ 200 mls/hr 06/27/23 10:29 Oxytocin Premix IV CONT PRN Bleeding Protocol Tranexamic Acid 1,000 mg/ 100 mls @ 200 mls/hr 06/27/23 10:29 Sodium Chloride IV NOW PRN Bleeding Oxytocin/Lactated Ringer's 30 unit in 500 mls @ 2 mls/hr 06/27/23 14:54 06/27/23 16:43 Oxytocin Premix IV 2 milliunit/min TITRATE MAYKEL 2 mls/hr Administration Protocol 2 MILLIUNIT/MIN FENT 2MCG/ML BUPIV 0.125% EPI 200 mcg in 100 mls @ 6 mls/hr 06/28/23 00:45 Fentanyl/Bupiv/Ns 2mcg/Ml - 0.125% EPIDURAL CONT MAYKEL Lidocaine HCl 20 ml 06/27/23 10:29 Lidocaine 1% 20 Ml INJ INTRA-OP PRN Post Delivery Methylergonovine Maleate 0.2 mg 06/27/23 10:29 Methylergonovine 0.2 Mg Tablet PO Q6HR PRN Heavy Bleeding Methylergonovine Maleate 0.2 mg 06/27/23 10:29 Methylergonovine 0.2 Mg/Ml Vial IM NOW PRN Bleeding Misoprostol 800 mcg 06/27/23 10:29 Misoprostol 200 Mcg Tablet MT NOW PRN Bleeding Misoprostol 400 mcg 06/27/23 10:29 Misoprostol 200 Mcg Tablet SL NOW PRN Bleeding Nalbuphine HCl 2.5 mg 06/28/23 00:35 Nalbuphine 20 Mg/Ml Ampul IV Q10M PRN Pruritis Naloxone HCl 0.2 mg 06/27/23 10:29 Naloxone 0.4 Mg/Ml Vial IV Q2MIN PRN Opiate Reversal Naloxone HCl 0.4 mg 06/28/23 00:37 Naloxone 0.4 Mg/Ml Vial IV Q2MIN PRN Opiate Reversal Ondansetron HCl 4 mg 06/27/23 10:29 Ondansetron 4 Mg/2 Ml Inj IV Q4HR PRN Nausea And Vomiting Oxytocin 10 unit 06/27/23 10:29 Oxytocin 10 Unit/Ml Vial IM NOW PRN Bleeding Allergies: Allergies Allergy/AdvReac Type Severity Reaction Status Date / Time No Known Drug Allergies Allergy Unknown Verified 06/25/23 11:22 Procedure Insertion date: 06/28/23 Insertion time: 02:36 Prep/Local: 1% lidocaine (Chloraprep) Interspace: L3-4 Patient position: sitting Needle: 18 gauge Hustead Loss of resistance with: saline (at 4.5 cm) CRISTOFER at (cm): 5 Catheter placed at SKIN (cm): 13 Catheter in SPACE (cm): 8 Insertion: Yes CSF, No Blood, No Paresthesia with insertion, No Paresthesia with injection and No Test dose reaction Initial Medications TEST DOSE time: 02:38 TEST DOSE: 1.5% lidocaine with epinephrine 1:200k (mL): 3 Infusion INFUSION: 0.125% bupivacaine and with fentanyl 2 mcg/mL Initial rate (mL/hr): 10 Subsequent interventions: At bedside 02:19, confirmed pt's allergies, no hx back problems. Hx tachycardia up to 120-130s prior to , as noted on pt's Apple watch, but EKG reportedly WNL except for baseline tachycardia. Prep and drape at 02:30 with time-out 02:31. Easily palpable spinous processes and easy placement on first attempt at L3-4. CSE done with intrathecal dose at 02:36 of 0.5 ml of 0.75% spinal bupivacaine. Catheter placed at 02:36. Test dose at 02:38--negative, HR stable in 110-130s. Due to pt's petite size, did not give bolus dose through epidural. While I was preparing epidural infusion pump and pt was returned to supine with BECKIE, pt became tachycardic to 160-170s; BP stable. Pt denied any tongue numbness. Asked pt to bear down for Valsalva maneuver, and HR quickly dropped to 106, then returned to 110s. One BP as low as 93/51, but by the time I obtained ephedrine from Pyxis, BP was back to 110/60s and stable. Pt reports she feels fine and appears very comfortable. Able to move BLE. Pitocin has been restarted. Epidural infusion started at 03:08. 15:50 Pt lost some blood with delivery and became more tachycardic. Has settled back down to 110s per L&D RN Azul. I recommended a EKG prior to discharge to evaluate for any abnormal EKG findings and I recommended to pt last night that she follow up with a splicing supervisor at some point due to her episodes of severe tachycardia. KR Post-procedure Anesthesia date START: 06/28/23 Anesthesia time START: 02:30 Anesthesia date END: 06/28/23 Anesthesia time END: 14:00 Post-procedure Anesthesia Assessment: Yes CV function: HR/BP stable, Yes Resp function: RR/sat/airway adequate, Yes Post-op hydration adequate, Yes Pain control adequate, Yes Nausea & vomiting absent, Yes Temperature > 36 C, Yes Mental status appropriate and Yes Anesthesia complications
[2023-06-28] MEDS: FENT 2MCG/ML BUPIV 0.125% EPI 200 MCG/100 ML PLAST..BAG 6 MCG EPIDURAL (08:38)
--- NOTE | 2023-06-28 09:12 | PM.OBPNLAB ---
Date/Time Date Patient Seen: 06/28/23 Time Patient Seen: 08:45 Pain Control Pain control: epidural Pelvic Exam Dilation (cm): 2.5 Effacement (%): 75 station: -2 Amniotic membrane status: Ruptured Contractions Contraction frequency (min): 3 Contraction intensity: Strong/Firm Intrauterine tone measurement: 165 Status status: Category l Heart Rate Baseline: 150 Monitor Accelerations: Absent Monitor Decelerations: Absent Monitor Variability: Moderate Assessment and Plan Comments: 33yo at 39w2d here with SROM at home, regular contractions. GBS negative, Rh positive. No complications with . Pt without any significant cervical change, IUPC placed last night to help titrate pitocin. Due to complications with epidural placement, pitocin had to be discontinued. No restarted, contractions not quite adequate. - Continue pitocin, titrate to adequate MVUs - Recheck cervix after adequate contractions for 2 hrs - FHT reassuring - Epidural for pain control in place
[2023-06-28] MEDS: ONDANSETRON 4 MG/2 ML INJ IV (09:42)
[2023-06-28] MEDS: LACTATED RINGERS 1,000 ML 100 ML IV ×2 (13:47→13:48)
[2023-06-28] MEDS: TRANEXAMIC ACID 1,000 MG in SODIUM CHLORIDE 0.9% 100 ML 200 MG IV (14:15)
--- NOTE | 2023-06-28 14:41 | PM.OBPRVD ---
Labor & Delivery Delivery date: 06/28/23 Cervical ripening method: none Induction method: per pitocin protocol Delivery monitor: external FHT and internal uterine Route of delivery: Episiotomy description: None L&D Laceration Description: None Quantitative Blood Loss: 1,698 Complications: hemorrhage Narrative: PROCEDURE: at 39w2d presented with SROM at home, regular contractions and was admitted to Labor and Delivery. She had ROM with clear fluid at 4:50 on 06/26. She initiallly had no cervical change, and pitocin was initiated. The patient progressed through the 1st stage over 33 hours. Pain was controlled with an epidural. The patient progressed through the 2nd stage over 5 minutes and delivered a viable female infant with APGARs 8/9 at 14:00 via . The cord was cut and clamped after it stopped pulsating. The placenta delivered with gentle cord traction, and appeared complete. The perineum and vagina were inspected with no lacerations. Likely due to prolonged use of pitocin prior to delivery, the pt had significant uterine atony after delivery. This improved with bimanual massage, pitocin, TXA, and methergine. Needle and sponge counts were correct.? The vagina was inspected and no items were left in situ. Cara was doing well with her (yet to be named) and at bedside. PREPROCEDURE DIAGNOSIS: Intrauterine at 39w3d GBS negative RH positive POSTPROCEDURE DIAGNOSIS: Intrauterine at 39w3d, delivered Same as preprocedure hemorrhage [employer] Baby 1: Infant gender: Female Presentation: vertex Position: Left Occiput Anterior Placenta delivery description: Spontaneous Cord Vessel Description: 3 Vessels score (1 min): 8 score (5 min): 9 weight: 8 lb 5.089 oz Plan for aftercare: Routine care
[2023-06-28] MEDS: IBUPROFEN 600 MG TABLET PO ×2 (17:02→22:16)
[2023-06-28] MEDS: LANOLIN OINT 7 GM 1 APPLIC TOP (18:00)
[2023-06-29] MEDS: IBUPROFEN 600 MG TABLET PO ×2 (04:39→10:34)
[2023-06-29] MEDS: ACETAMINOPHEN 325 MG TABLET 650 MG PO (04:39)
[2023-06-29 06:44] LABS: Add Manual Diff / Slide Review NO; Basophils Absolute Auto 0 /uL (0-100); Basophils Percent Auto 0.2 % (0-2); Eosinophils Absolute Auto 100 /uL (0-450); Eosinophils Percent Auto 0.8 % (2-4); Hematocrit 25.7 % (36-46); Hemoglobin 8.3 g/dL (12.0-16.0); Lymphocytes Absolute Auto 2100 /uL (1100-4500); Lymphocytes Percent Auto 14.5 % (25-40); Mean Corpuscular HGB Conc 32.2 % (30-36); Mean Corpuscular Hemoglobin 26.6 PG (26-34); Mean Corpuscular Volume 82.5 fL (80-100); Monocytes Absolute Auto 1000 /uL (0-900); Monocytes Percent Auto 6.5 % (3-14); Neutrophils Absolute Auto 11400 /uL (1500-7000); Platelet Count 183 X10^3/uL (150-400); Red Blood Cell Count 3.12 X10^6/uL (4.0-5.2); White Blood Cell Count 14.6 X10^3/uL (4.5-11.0)
--- NOTE | 2023-06-29 08:41 | PM.OBDS.1 ---
Discharge Providers Provider Date of admission: 06/27/23 07:36 Discharge Date: 06/29/23 Primary care physician: Joan Schreiber MD Consults: 06/27/23 10:29 Consult to Anesthesiology Urgent Comment: Consulting Provider: Manish De La Cruz Reason for consultation: Epidural 06/29/23 14:40 Consult to Door Serviceman Routine Comment: Discharge provider: Lesa Levy MD Summary Hospital Course Date Patient Seen: 06/29/23 Diagnoses: Intrauterine at 39w3d GBS negative RH positive hemorrhage Acute blood loss anemia Hospital Course: The pt presented with SROM in latent labor. She received pitocin for induction, and an epidural for pain control. She progressed to complete after a prolonged first stage, and had an of a viable baby girl. There were no lacerations. The pt had significant bleeding due to uterine atony after delivery, and received pitocin, TXA, and methergine in addition to bimanual massage. She will continue an iron supplement at discharge. , there were no additional complications. At the time of discharge she was voiding, ambulating, and passing flatus without difficulty. Her lochia was decreasing appropriately. Her pain was well controlled. She was with good latch. She will f/u in 6 weeks for check. She would like NuvaRing for contraception. Peripartum Data Infant Delivery Method: Natural Vaginal Laceration Description: None Procedures: Spontaneous vaginal delivery complications: none 1: Gender: Female Disposition of : home Time Spent with Patient Time attestation: Total time spent providing and/or coordinating discharge services: Objective Labs 06/29/23 06:25 Labs: Laboratory Results - last 24 hr 06/29/23 06:25 WBC 14.6 H RBC 3.12 L Hgb 8.3 L Hct 25.7 L MCV 82.5 MCH 26.6 MCHC 32.2 RDW 16.0 H Plt Count 183 Neut % (Auto) 78.0 H Lymph % (Auto) 14.5 L [place] % (Auto) 6.5 Eos % (Auto) 0.8 L Baso % (Auto) 0.2 Neut # (Auto) 44866 H Lymph # (Auto) 2100 [place] # (Auto) 1000 H Eos # (Auto) 100 Baso # (Auto) 0 Exam Narrative Exam Narrative: Gen: NAD, sitting comfortably in bed, appears well CV: RRR, no murmurs Resp: clear to auscultation bilaterally Abd: soft, appropriately tender, fundus firm and below the umbilicus, nondistended Ext: no edema Discharge Plan Discharge Plan Patient Disposition: Home Discharge orders & Medications Prescriptions: New acetaminophen 325 mg Tablet 650 mg PO Q6HR PRN (Reason: Pain, Mild (1-3)) Qty: 30 0RF ferrous sulfate 325 mg (65 mg iron) Tablet 325 mg PO DAILY Qty: 30 0RF docusate sodium 100 mg Capsule 100 mg PO DAILY Qty: 30 0RF ibuprofen 600 mg Tablet 600 mg PO Q6HR PRN (Reason: Pain, Mild (1-3)) Qty: 60 0RF Continued PNV [id number] fumarate-FA [ Multivitamins] 28 mg iron- 800 mcg tablet 1 tab PO DAILY Discontinued famotidine 20 mg tablet 20 mg PO BID Qty: 60 2RF Follow up/Referrals: Lesa Levy MD [Physician] - 6 Weeks Joan Schreiber MD [Primary Care Provider] - Diet/Activity/Treatments Diet: Diet as Tolerated and Regular Skin/Wound/Dressing Care Report to your healthcare provider any signs of infection, such as:: chills, fever, increased pain and unusual drainage Visit Report/Discharge Packet Instructions: DI for Labor and Delivery, Vaginal Stand Alone Forms: Patient Portal/API, Stroke Signs & Symptoms Discharge Data Primary Care Provider: Joan Schreiber
[2023-06-29] MEDS: FERROUS SULFATE 325 MG TABLET PO (09:27)
[2023-06-29] MEDS: DOCUSATE 100 MG CAPSULE PO (09:27)
[2023-06-29] MEDS: PRENATAL VIT,CALC/IRON/FOLIC 1 TABLET 1 TAB PO (09:27)
[2023-06-29] MEDS: OXYCODONE IR 5 MG TABLET PO (09:31)
--- NOTE | 2023-06-29 13:25 | P.HPNB_ITS ---
History History Product of uncomplicated and normal spontaneous vaginal delivery. Clear fluid. Mom is Rh positive. GBS negative. Baby had no complications at delivery score (1 min): 8 score (5 min): 9 weight: 8 lb 5.089 oz Baby is sleepy but is making some progress with feeding. Patient has had a bowel movement This is mom's 3rd baby. weight: 3.77 kg Gestation: term Multiple fetuses: No score (1 min): 8 score (5 min): 9 Nursery Course Maternal RH factor: positive Post delivery complications: Reports none Review of Systems Review of Systems Narrative: 12 point ROS negative stooling urinating Exam - Pediatric Vital Signs Vital Signs: Vital Signs BP 124/78 06/27/23 13:01 Afebrile, vital signs stable HEENT within normal limits, no tongue tie, normocephalic atraumatic, anterior fontanelle open and flat Neck: No adenopathy, no mass Chest: Clear to auscultation without wheezes rhonchi or crackles Cor: Regular rate and rhythm without a murmur Abdomen: Positive bowel sounds, soft umbilical stump healing well Extremities: Moves all extremities well, femoral pulses intact, no hip clicks or clunks Neurologic exam is nonfocal Skin no rashes Objective Labs 06/29/23 06:25 Labs: Laboratory Results - last 24 hr 06/29/23 06:25 WBC 14.6 H RBC 3.12 L Hgb 8.3 L Hct 25.7 L MCV 82.5 MCH 26.6 MCHC 32.2 RDW 16.0 H Plt Count 183 Neut % (Auto) 78.0 H Lymph % (Auto) 14.5 L [place] % (Auto) 6.5 Eos % (Auto) 0.8 L Baso % (Auto) 0.2 Neut # (Auto) 08185 H Lymph # (Auto) 2100 [place] # (Auto) 1000 H Eos # (Auto) 100 Baso # (Auto) 0 Assessment & Plan Assessment & Plan narrative: Term without complications Discharge home with routine instructions regarding hyperbilirubinemia, , infection Follow up with me on Sunday Sarnat Scoring Scale Citation Marie HB, Skip L, Saroj C, Lucille LM, Davion C, Alla K. Sarnat grading scale for encephalopathy after 45 years: an update proposal. Pediatr Neurol. 2020;113:75?9.
[2023-06-29 14:21] VITALS: BP 124/78
[2023-06-29 14:22] VITALS: BP 111/71; PULSE 71; RESP 16; TEMP 36.9
[2023-06-29] MEDS: MEASLES,MUMPS,RUBELLA VACC/PF 0.5 ML VIAL SUBCUT (14:32)
== END 2023-06-29 16:03 | disposition home or self-care (01) | DRG 806 ==
PROVIDERS: Admitting Provider Family Medicine; Family Provider Family Medicine; PCP Family Medicine; Referring Provider Family Medicine; Visit Provider Family Medicine
DX: O42.12 Full-term premature rupture of membranes, onset of labor more than 24 hours following rupture (principal); D62 Acute posthemorrhagic anemia; Z37.0 Single live birth; O72.1 Other immediate postpartum hemorrhage; O90.81 Anemia of the puerperium; Z3A.39 39 weeks gestation of pregnancy
CPT/HCPCS: 36415; 59050; 59400; 84112; 85025; 86850; 86900; 86901; 93005; 93010; A9270; G0379; J2405; J2590

== ENCOUNTER → 2024-12-23 07:15 | Outpatient (CLI) | payer OTHER, SELFPAY ==
--- NOTE | 2024-12-23 07:16 | DI.US.S_ITS ---
PROCEDURE: US OB LIMITED INDICATIONS: DATES; LATE TO CARE The calculations are made using the working JUNI of 06/03/2025. TECHNIQUE: Real-time scanning was performed of the fetus, with image documentation and biometric measurements. Endovaginal scanning: No COMPARISON: None. FINDINGS: General: A single living intrauterine gestation is present. Presentation: Vertex. Placenta: Placental position is anterior , without previa. Amniotic fluid index: 13.3 cm, normal range is 5-24 cm. Single deepest vertical pocket is 4.5 cm. heart rate: 147 beats per minute. Maternal cervical canal: 3.9 cm long. Normal lower limit is 2.5 cm. biometrics: Biparietal diameter: 3.5 cm, 16 week 5 day Head circumference: 12.9 cm, 16 week 4 day Abdominal circumference: 10.9 cm, 16 week 5 day Femur length: 2.1 cm, 16 week 1 day Clinically estimated gestational age: 16 week 6 day Composite gestational age from present scan: 16 week 4 day Estimated weight and percentile: 157 g, 20 percentile Other: Not applicable. IMPRESSION: Single live intrauterine consistent with a 16 week 4 day gestation by current ultrasound Approved by: David North M.D. on 12/23/2024 at 19:10
[2024-12-23 08:07] LABS: Add Manual Diff / Slide Review NO; Hematocrit 36.7 % (36-46); Hemoglobin 12.5 g/dL (12.0-16.0); Lymphocytes Absolute Auto 1600 /uL (1100-4500); Mean Corpuscular HGB Conc 34.1 % (30-36); Mean Corpuscular Hemoglobin 30.2 PG (26-34); Mean Corpuscular Volume 88.5 fL (80-100); Platelet Count 266 X10^3/uL (150-400)
[2024-12-23 09:42] LABS: Appearance Urine UA CLEAR; Bilirubin Urine UA NEGATIVE (NEGATIVE); Color Urine UA YELLOW; Glucose Urine UA NEGATIVE (Negative); Ketones Urine UA NEGATIVE (NEGATIVE); Leukocyte Esterase Urine UA NEGATIVE (NEGATIVE); Nitrite Urine UA NEGATIVE (Negative); Occult Blood Urine UA NEGATIVE (Negative); Protein Urine UA NEGATIVE (Negative); Specific Gravity Urine UA 1.020 (1.000-1.035); Urobilinogen Urine UA 0.2 E.U./dL (0.2)
[2024-12-23 09:59] LABS: pH Urine UA 6.0 (4.5-8.0)
[2024-12-23 15:04] LABS: Hepatitis B Surface Antigen NEGATIVE s/c (NEGATIVE)
[2024-12-23 15:23] LABS: HIV 1 & 2 Ab/Ag 4th Gen Combo NEGATIVE (NEGATIVE); Hep C Virus Ab w/Reflex Quant NEGATIVE s/c (NEGATIVE)
== END ==
PROVIDERS: Family Provider Family Medicine; PCP Family Medicine; Referring Provider Family Medicine; Visit Provider Family Medicine
DX: Z34.82 Encounter for supervision of other normal pregnancy, second trimester (principal); Z3A.16 16 weeks gestation of pregnancy
CPT/HCPCS: 36415; 76815; 80055; 81003; 86787; 86803; 86850; 86900; 86901; 87086; 87389

== ENCOUNTER → 2025-01-20 10:29 | Outpatient (CLI) | payer OTHER, SELFPAY | PROVIDERS: PCP Family Medicine; Referring Provider Family Medicine; Visit Provider Family Medicine | DX: Z34.80 Encounter for supervision of other normal pregnancy, unspecified trimester (principal) | CPT/HCPCS: 36415; 82105; 82677; 84702; 86336 ==

== ENCOUNTER → 2025-01-30 12:17 | Outpatient (CLI) | payer OTHER, SELFPAY ==
--- NOTE | 2025-01-30 12:18 | DI.US.S_ITS ---
PROCEDURE: US OB >= 14 WEEKS FETUS INDICATIONS: anatomy OUTSIDE/PRIOR DATING DATA: Last menstrual period (LMP): 08/27/2024. LMP-based estimated date of delivery (JUNI): 06/03/2025. First dating scan (date and location): 11/27/2024. Estimated date of delivery (JUNI) from first dating scan: 06/08/2025. The calculations are made using the clinical JNUI of 06/03/2025. TECHNIQUE: Real-time scanning was performed of the fetus, with image documentation and biometric measurements. Endovaginal scanning: Not obtained COMPARISON: [facility], OB >= 14 WEEKS FETUS, 02/12/2023, 12:50. [facility], OB LIMITED, 12/23/2024, 7:24. FINDINGS: General: A single living intrauterine gestation is present. Presentation: Vertex. Placenta: Placental position is anterior , without previa. Amniotic fluid index: 13.4 cm, normal range is 5-24 cm. Single deepest vertical pocket is 6.0 cm. heart rate: 136 beats per minute. Maternal cervical canal: 4.2 cm long. Normal lower limit is 2.5 cm. biometrics: Biparietal diameter: 5.4 cm 22 weeks 3 days Head circumference: 19.4 cm 21 weeks 5 days Abdominal circumference: 17.0 cm 22 weeks 0 days Femur length: 3.9 cm 22 weeks 4 days Clinically estimated gestational age: 22 weeks 2 days Composite gestational age from present scan: 22 weeks 1 day Estimated weight and percentile: 484 g 39th percentile Anatomic survey: Neuro: Ventricles are non-dilated at less than 10 mm. Cisterna magna is normal at 3-11 mm. Cerebellum is normal in size and morphology. Nuchal skin fold: Normal at less than 6 mm between 14-21 weeks gestational age. Face: Nose and lips, facial profile are normal. Spine: No evidence for spina bifida. Heart: 4-chambered heart is present, with normal ventricular outflow tracts. Diaphragm: Diaphragm is intact. Stomach: Left-sided stomach is present. Kidneys: No hydronephrosis. Normal is less than 5 mm in 2nd trimester, less than 7 mm in 3rd trimester. Cord: 3-vessel cord has orthotopic insertion. Bladder: Normal in size. Extremities: All 4 extremities identified. IMPRESSION: Single live intrauterine with gestational age today of 22 weeks 1 day. Anatomy is within normal limits. We strive to produce accurate, complete, and clear reports of imaging services. To assist us in improving patient care, this report was composed using standard report templates and voice recognition software. Therefore, it may contain abnormal punctuation, insertions and/or omissions. Occasional wrong-word or sound-alike substitutions may occur. Though we review the report and make efforts to correct it, we do recommend that the report be read carefully in proper context to recognize any text inaccuracies. Dictated by: Nicky Huffman M.D. on 01/30/2025 at 17:12 Approved by: Nicky Huffman M.D. on 01/30/2025 at 17:14
== END ==
PROVIDERS: PCP Family Medicine; Referring Provider Family Medicine; Visit Provider Family Medicine
DX: Z34.82 Encounter for supervision of other normal pregnancy, second trimester (principal); Z3A.22 22 weeks gestation of pregnancy
CPT/HCPCS: 76811